=== PATIENT | male | born 1995 | race Caucasian/White ===

== ENCOUNTER 2018-05-12 13:11 | Day surgery (SDC) | payer OTHER ==
[~2018-05-12] VITALS: Ht 177.8 cm; Wt 117.8 kg
[2018-05-12] MEDS ORDERED: DOXY100 PO (14:31)
--- NOTE | 2018-05-12 14:41 | NUR ---
Ambulatory in Day Surgery History, Chart, Medications and Allergies reviewed before start of procedure. Lungs clear T/O to Auscultation. Patient confirms NPO status and agrees with scheduled surgery. Pre-Op teaching done. Pt verbalizes understanding. Patient States Post-Procedure ride home has been arranged.
--- NOTE | 2018-05-12 18:03 | NUR ---
REPORT FROM CARLO BLANCO RN. PT AWAKE, TUCKED INTO WARM BLANKETS, ICE PACK TO ANKLE. SPOKE TO YAAKOV REDDY REGARDING PATIENT TRANSPORTATION. YAW MORALES ON HIS WAY TO PICK PT UP AND GET HIS PAIN MEDS. RLE ELEVATED.
--- NOTE | 2018-05-12 18:54 | NUR ---
Discharge instructions reviewed with patient. Patient verbalizes understanding. Copy given to patient to take home. Patient States Post-Procedure ride home has been arranged. Discharged via wheelchair to private car for ride home. ALL BELONGIGNS, ICE PACKS SENT WITH PATIENT.
--- NOTE | 2018-05-16 07:48 | NUR ---
05/16/18 0748 Antonette Everett VERIFICATIONS: EDIT CHART.
== END 2018-05-12 22:51 | disposition home or self-care (01) ==
LOC: ORSCMMR 13:11
PROVIDERS: Orthopaedic Surgery
PROC: 0QSJ04Z Reposition Right Fibula with Internal Fixation Device, Open Approach (ICD-10-PCS; principal; 2018-05-12 15:30)
DX: S82.61XA Displaced fracture of lateral malleolus of right fibula, initial encounter for closed fracture (principal); Z87.891 Personal history of nicotine dependence; E66.01 Morbid (severe) obesity due to excess calories; Z68.37 Body mass index [BMI] 37.0-37.9, adult
CPT/HCPCS: C1713; J0690; J1100; J1885; J2250; J2405; J3010; J7120

== ENCOUNTER → 2019-03-29 | Outpatient (CLI) | payer OTHER ==
[~2019-03-29] MED LIST: DOXY100 PO
[2019-03-29 20:33] LABS: CHOL/HDL RATIO 3.1; Cholesterol 116 mg/dL (50-200); HDL Cholesterol 38 mg/dL (>39); LDL/HDL RATIO 1.6; Low Density Lipoprotein Chol 62 mg/dL (0-110); Triglycerides 82 mg/dL (30-140); Very Low Density Lipoprot Chol 16 mg/dL (6-28)
== END | disposition home or self-care (01) ==
LOC: LAB SHORT 19:05 → LAB 19:05 → EDSTATUS 03-29 12:25 → LAB FUT 03-29 12:25
PROVIDERS: Nurse Practitioner Family
DX: Z00.00 Encounter for general adult medical examination without abnormal findings (principal)
CPT/HCPCS: 80061